=== PATIENT | male | born 1975 | race Caucasian/White ===

== ENCOUNTER 2016-05-14 21:15 | Inpatient (IN) | payer OTHER ==
--- NOTE | ~2016-05-14 | PN ---
Unit #: [id number] #: [id number] Patient: ALEX MARISCAL V [id number] [facility] [address] [place] [address] [id number] MR#: [id number] NAME: ALEX MARISCAL V. ROOM: P205 Age: 40 Sex: M Admission Date: 05/14/2016 : 1975 Attending Physician: Raul Foy M.D. Admitting Physician: Raul Foy M.D. Primary Care Physician: [facility] EMERALD LAKHANI NOTES DATE OF SERVICE: 05/16/2016 DISCUSSION Alex Mariscal is a 40-year-old male, seen on 05/16/2016. The patient interviewed, chart reviewed, and obtained information from nursing staff. The patient was compliant and cooperative. Mood was sad, dysphoric, flat affect, guarded. The patient was able to maintain safe behavior. REVIEW OF SYSTEMS Complete review of systems unremarkable. MENTAL STATUS EXAMINATION General appearance, the patient dressed casually. Attention span and concentration, fair. Oriented in place and person. Mood and affect, labile. Speech, regular rate. Thought process, goal directed. The patient denied any thoughts of harming self or others or any psychotic symptom. Recent and remote memory, poor. Insight and judgment, fair to poor. DIAGNOSIS Mood disorder, not otherwise specified. ASSESSMENT AND PLAN Advised to continue with current medication and therapeutic protocol. We will monitor response to medication and make further adjustment of medication. Dictated by... Madi Solorio/maisha TD: 05/18/2016 06:15 JOB #: [id number] Unit #: [id number] #: [id number] Patient: ALEX MARISCAL PROGRESS NOTES X Raul Foy MD PROGRESS NOTE
--- NOTE | ~2016-05-14 | PA ---
Unit #: [id number] #: [id number] Patient: ALEX MARISCAL V [id number] [facility] [address] [place] [address] [id number] I MR#: [id number] NAME: ALEX MARISCAL V. ROOM: [facility] Age: 40 Sex: M Admission Date: 05/14/2016 : 1975 Date of Assessment: Attending Physician: Raul Foy M.D. Admitting Physician: Raul Foy M.D. Primary Care Physician: [facility] PSYCHIATRIC ASSESSMENT INFORMANTS The patient reliability, fair; chart reliability, good. CHIEF COMPLAINT Homicidal ideation and bipolar disorder. HISTORY OF PRESENT ILLNESS Alex Mariscal is a 40-year-old male, seen on . The patient was admitted with the above-mentioned complaint. The patient has a history of previous admission at [facility], treatment, inpatient At [facility], requested by Certified Fraud Examiner. The patient was at [facility] penitentiary in 2010. The patient is currently unemployed, presented with the above-mentioned complaint, currently homeless. The patient was brought to the hospital. The patient believes that 3 men are trying to kill him because his [id number] put a hit on him. The patient was delusional, paranoid, mood lability, sad, and depressed. The patient has been in and out of penitentiary since age 10 for various charges. The patient was tested in penitentiary and he was diagnosed with paranoia, depression, anxiety, and was treated. The patient has a history of aggression and wanted to kill 3 of his siblings. Duty to warn was done. The patient was compliant and cooperative during interview. Needing inpatient admission at this time for psychiatric stabilization. PAST PSYCHIATRIC HISTORY Remarkable for history of previous treatment in penitentiary. FAMILY HISTORY/SOCIAL HISTORY The patient has a poor support system. History of alcohol problem in dad and history of addictions in mother according to the intake reports. No history of any abuse. MEDICAL HISTORY Remarkable for history of hypertension and asthma. Musculoskeletal; muscle strength and tone, no atrophy or abnormal movement. Gait normal. MEDICATION HISTORY None. ALLERGIES No known drug allergies. SUBSTANCE ABUSE HISTORY The patient reported tobacco, age of onset 12; alcohol, age of onset 15; Unit #: [id number] #: [id number] Patient: ALEX MARISCAL V marijuana, age of onset is 19; opioid, age of onset 13; and amphetamine, age of onset 38. The patient currently denied any withdrawal symptoms. REVIEW OF SYSTEMS HEENT: Eyes, clear. Ears, nose, mouth, throat; clear. CARDIOVASCULAR: Unremarkable. RESPIRATORY: Unremarkable. GI: Unremarkable. : Unremarkable. SKIN: Unremarkable. LYMPH NODE: Unremarkable. NEUROLOGIC: Unremarkable. ENDOCRINE: Unremarkable. HEMATOLOGIC: Unremarkable. ALLERGIC/IMMUNOLOGIC: Unremarkable. MUSCULOSKELETAL: Muscle strength and tone, no atrophy or abnormal movement. Gait normal. MENTAL STATUS EXAMINATION CONSTITUTIONAL: Measurement of vital signs; temperature 97.6, pulse 65, respirations 18, and blood pressure 141/73. Height 5 feet 11 inches and weight 169 pounds. GENERAL APPEARANCE: The patient dressed casually. The patient did not show any facial deformity. MUSCULOSKELETAL: Please see above. PSYCHIATRIC EXAMINATION Description of speech; regular rate, normal volume, normal articulation. Description of thought process, circumstantial. Description of association; guarded, paranoid, mood lability, problem with anger, temper, substance abuse. Description of the patient's judgment: Concerning everyday activity, poor. Social situation, poor. Concerning psychiatric condition, poor. History of homicidal ideation, denied any suicidal ideation, mood lability. Complete mental status examination; oriented in time, place, and person. Recent and remote memory, poor. Attention span and concentration, poor. Language; able to name object, repeat phrases. Fund of knowledge; aware of current event, passive vocabulary intact. Mood and affect, sad and dysphoric. Insight and judgment were fair to poor. ASSETS AND LIABILITIES Assets; the patient is articulate, able to take care of his ADL. Liabilities; history of substance abuse, depression. ADMITTING DIAGNOSES Psychiatric: 1. Mood disorder, not otherwise specified, F32.9. 2. Alcohol use disorder, severe, F10.20. 3. Cannabis abuse, moderate, F12.20. Secondary diagnosis: Deferred. Medical diagnoses: Hypertension, asthma. Stressors: Psychosocial stressors. PSYCHIATRIC PLAN, TREATMENT GOAL, AND DISCHARGE PLAN 1. Advised to admit the patient on the inpatient unit. Provide safe, Unit #: [id number] #: [id number] Patient: ALEX MARISCAL V supportive, and structured environment. 2. Ordered labs; CBC, CMP, UA, and UDS. 3. Advised to start the patient on Remeron, Neurontin, Vistaril, and Desyrel combination. If needed, consider further adjustment of medication. The patient is to be monitored for aggression and self-harm. 4. Treatment goal is to attain euthymic mood, gain insight into his problem, and learn coping skills. 5. Discharge plan: Plan is to stabilize the patient and consider followup in outpatient program. ESTIMATED LENGTH OF STAY 5 to 7 days. Dictated by... Madi Solorio/maisha TD: 05/17/2016 16:09 JOB #: [id number] PSYCHIATRIC ASSESSMENT X Raul Foy MD PSYCHIATRIC ASSESSMENT
--- NOTE | ~2016-05-14 | PN ---
Unit #: [id number] #: [id number] Patient: ALEX MARISCAL V [id number] [facility] [address] [place] [address] [id number] I MR#: [id number] NAME: ALEX MARISCAL V. ROOM: P205 Age: 40 Sex: M Admission Date: 05/14/2016 : 1975 Attending Physician: Raul Foy M.D. Admitting Physician: Raul Foy M.D. Primary Care Physician: [facility] EMERALD PROGRESS NOTES DATE 05/15/2016 DISCUSSION Alex Mariscal is a 40-year-old male seen on 05/15/2016. The patient interviewed, chart reviewed. Obtained information from nursing staff. The patient was compliant and cooperative, redirectable. Mood sad, dysphoric, flat affect, guarded. The patient urine drug screen came back positive for amphetamine. His CT scan of head is normal. Thyroid function test normal. CBC unremarkable. CMP remarkable for BUN 8, AST 200, ALT 210, Alkaline phosphatase 147. Complete review of systems unremarkable. MENTAL STATUS EXAMINATION General appearance, the patient dressed casually. Attention span and concentration fair. Oriented to place and person. Mood and affect labile. Speech regular rate. Thought process goal directed. The patient denied any thoughts of harming self or others or any psychotic symptoms. Recent and remote memory poor. Insight and judgement poor. DIAGNOSES Mood disorder NOS, polysubstance abuse. ASSESSMENT/PLAN Advise to continue with current medication and therapeutic protocol. We will monitor response to medication and make further adjustment of medication. Dictated by... Madi Solorio/bonnie TD: 05/18/2016 22:02 JOB #: [id number] Unit #: [id number] #: [id number] Patient: ALEX MARISCAL PROGRESS NOTES X Raul Foy MD PROGRESS NOTE
--- NOTE | ~2016-05-14 | DS ---
Unit #: [id number] #: [id number] Patient: ALEX MARISCAL V [id number] [facility] [address] [place] [address] [id number] I MR#: [id number] NAME: ALEX MARISCAL V. ROOM: [facility] Age: 40 Sex: M Admission Date: 05/14/2016 : 1975 Discharge Date: 05/17/2016 Attending Physician: Raul Foy M.D. Primary Care Physician: [facility] DISCHARGE SUMMARY REASON FOR ADMISSION Psychosis. DIAGNOSTIC STUDIES LABORATORY RESULTS: Remarkable for AST 200 and ALT 210. Urine drug screen was positive for amphetamine. HOSPITAL COURSE The patient was admitted to the inpatient unit on 05/14/2016 and discharged on 05/17/2016. The patient was treated on the inpatient unit with group therapy, individual therapy, medication management, and chemical dependency group. The patient responded well with the above modalities of treatment. Subsequently, the patient was discharged with a plan to follow up in outpatient program. DISCHARGE MEDICATIONS Desyrel 75 mg at bedtime for sleep, Remeron 15 mg at bedtime for depression, and Neurontin 300 mg t.i.d. for mood symptoms. DISCHARGE DIAGNOSES Psychiatric: 1. Mood disorder, not otherwise specified, F32.9. 2. Alcohol use disorder, severe, F10.20. 3. Cannabis abuse, moderate, F12.20. Secondary diagnosis: Deferred. Medical diagnoses: Asthma, hypertension. Stressors: Psychosocial stressors. DISCHARGE INSTRUCTIONS The patient is to follow up in outpatient clinic as per social services assistant. CONDITION ON DISCHARGE The patient was pleasant and cooperative. Denied any psychotic symptom or any suicidal ideation. PROGNOSIS Guarded. DIET AND ACTIVITY As tolerated. Unit #: [id number] #: [id number] Patient: ALEX MARISCAL V Dictated by... Madi Solorio/maisha TD: 05/18/2016 18:45 JOB #: [id number] DISCHARGE SUMMARY X Raul Foy MD X DISCHARGE SUMMARY
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
[~2016-05-14 21:15] MED LIST: ANTIBIOTIC; ERYTHROMYCIN B500 MG PO; HYDROCODONE-APA1 T30 PO; KETOPROFEN PO; LORTAB 5/500 TA1 TA1 PO; LORTAB 7.5-5001 TAB PO; NAPROXEN PO
[2016-05-15 11:42] LABS: THYROID STIMULATING HORMONE 1.03 uIU/ml (0.34-5.60)
[2016-05-15 11:48] LABS: FREE THYROXIN (T4) 0.97 ng/dL (0.58-1.64)
== END 2016-05-17 10:48 | disposition home or self-care (01) | DRG 885 ==
LOC: P2S 21:15
PROVIDERS: Psychiatry & Neurology Psychiatry
DX: F39 Unspecified mood [affective] disorder (principal); I10 Essential (primary) hypertension; F32.9 Major depressive disorder, single episode, unspecified; F10.20 Alcohol dependence, uncomplicated; F12.20 Cannabis dependence, uncomplicated; J45.909 Unspecified asthma, uncomplicated; Z88.0 Allergy status to penicillin; F17.200 Nicotine dependence, unspecified, uncomplicated; Z59.0 Homelessness; F41.9 Anxiety disorder, unspecified
CPT/HCPCS: 84439; 84443

== ENCOUNTER 2016-06-01 03:16 | Emergency (ER) | payer OTHER | END 2016-06-01 04:59 | LOC: CED 03:16 | DX: R44.0 Auditory hallucinations (principal); R45.851 Suicidal ideations; F31.9 Bipolar disorder, unspecified; J44.9 Chronic obstructive pulmonary disease, unspecified; F17.210 Nicotine dependence, cigarettes, uncomplicated | CPT/HCPCS: 99285 ==

== ENCOUNTER 2016-06-01 05:44 | Inpatient (IN) | payer OTHER ==
--- NOTE | ~2016-06-01 | DS ---
Unit #: [id number] #: [id number] Patient: FCO MARISCAL V [id number] [facility] [address] [place] [address] [id number] I MR#: [id number] NAME: FCO MARISCAL V. ROOM: 73 Age: 40 Sex: M Admission Date: 06/01/2016 : 1975 Discharge Date: 06/02/2016 Attending Physician: Raul Foy M.D. Primary Care Physician: [facility] DISCHARGE SUMMARY REASON FOR ADMISSION Depression. HISTORY OF PRESENT ILLNESS Mr. Fco Mariscal is a 40-year-old male, admitted on 06/01/2016 and discharged on 06/02/2016. The patient was treated on the inpatient unit with group therapy, individual therapy, medication management. The patient responded fairly well. Subsequently, the patient was discharged as the patient was able to contract for safety with a plan to follow up in outpatient program. DISCHARGE MEDICATIONS The patient was on Neurontin 300 mg t.i.d. for anxiety, Robaxin 15 mg t.i.d. for pain, Remeron 15 mg at bedtime for sleep and depression, Voltaren 75 mg b.i.d. for pain. DISCHARGE DIAGNOSES Psychiatric: Mood disorder, not otherwise specified, F32.9; alcohol use disorder, severe; cannabis use disorder, moderate. Secondary diagnosis: Deferred. Medical diagnoses: Hypertension and asthma. Stressors: Psychosocial stressor. DISCHARGE INSTRUCTIONS The patient to follow up in outpatient clinic as per social welfare administrator. CONDITION ON DISCHARGE The patient was pleasant and cooperative. Denied any psychotic symptom or any suicidal ideation. PROGNOSIS Guarded. DIET AND ACTIVITY As tolerated. Dictated by... Raul Foy M.D. Unit #: [id number] #: [id number] Patient: FCO MARISCAL V SZC/modl TD: 06/03/2016 06:11 JOB #: [id number] DISCHARGE SUMMARY X Raul Foy MD X DISCHARGE SUMMARY
--- NOTE | ~2016-06-01 | HP ---
Unit #: [id number] #: [id number] Patient: ALEX MARISCAL V [id number] [facility] [address] [place] [address] [id number] I MR#: [id number] NAME: ALEX MARISCAL V. ROOM: [facility] Age: 40 Sex: M Admission Date: 06/01/2016 : 1975 Attending Physician: Raul Foy M.D. Admitting Physician: Raul Foy M.D. Primary Care Physician: [facility] HISTORY AND PHYSICAL NOTE Alex is a 40 year old admitted to [facility] reporting depression and verbalizing wanting to hurt himself. The patient was seen and H and P dated 05/15/2016 was reviewed. This is current. No changes. Please see H and P dated 05/15/2016. Dictated by... Sade Mann P.A.-C. for Madi Glover/bonnie TD: 06/02/2016 02:15 JOB #: [id number] HISTORY AND PHYSICAL X Sade Mann HISTORY AND PHYSICAL
--- NOTE | ~2016-06-01 | PA ---
Unit #: [id number] #: [id number] Patient: [facility] V [id number] [facility] [address] [place] [address] [id number] I MR#: [id number] NAME: ALEX MARISCAL V. ROOM: [facility] Age: 40 Sex: M Admission Date: 06/01/2016 : 1975 Date of Assessment: Attending Physician: Raul Foy M.D. Admitting Physician: Raul Foy M.D. Primary Care Physician: [facility] PSYCHIATRIC ASSESSMENT INFORMANTS The patient's reliability, fair; chart reliability, good. CHIEF COMPLAINT Suicidal ideation and homicidal ideation. HISTORY OF PRESENT ILLNESS Mr. Alex Mariscal is a 40-year-old white male, seen on 06/01/2016. The patient presented with the above-mentioned complaint. The patient has a history of previous admission from 05/14/2016 and 05/17/2016 with diagnosis of mood disorder, alcohol use disorder, cannabis abuse. The patient was admitted from [facility] due to the patient stating that he is hearing voices to harm himself with a plan. The patient reported that he does not know why he is being admitted, but the patient reported that he has not been taking his medication as prescribed. The patient also reported that he may be on 72-hour hold and being admitted due to saying that he wanted to kill people. The patient had suicidal and homicidal ideation. The patient reported homeless and wanted to get in due to it being cold outside, but admitted to the web content writer having suicidal and homicidal ideation, nonspecific. The patient reported hearing voices, wanting to kill people reported. Denied any use of drugs or alcohol. The patient has a history of previous treatment. Needing inpatient admission at this time for psychiatric stabilization. PAST PSYCHIATRIC HISTORY Remarkable [facility]. FAMILY HISTORY/SOCIAL HISTORY The patient reports currently homeless, but reports that history of previous treatment in prison. History of addiction in both mother and father's side of the family. No history of abuse. MEDICAL HISTORY Remarkable for hypertension and asthma. Musculoskeletal; muscle strength and tone, no atrophy or abnormal movement. Gait normal. MEDICATION HISTORY The patient is on Remeron 15 mg at bedtime, diclofenac 75 mg b.i.d., methocarbamol 1500 mg t.i.d., Neurontin 300 mg t.i.d. ALLERGIES No known drug allergies. Unit #: [id number] #: [id number] Patient: ALEX MARISCAL V SUBSTANCE ABUSE HISTORY The patient reported tobacco use, age of onset 12; alcohol, age of onset 15; marijuana, age of onset 19, opioid use, age of onset 13; and amphetamine, age of onset 38. The patient currently denied any use of drugs or any withdrawal. REVIEW OF SYSTEMS HEENT: Eyes, clear. Ears, nose, mouth, and throat; clear. CARDIOVASCULAR: Unremarkable. RESPIRATORY: Unremarkable. GI: Unremarkable. : Unremarkable. SKIN: Unremarkable. LYMPH NODE: Unremarkable. NEUROLOGIC: Unremarkable. ENDOCRINE: Unremarkable. HEMATOLOGIC: Unremarkable. ALLERGIC/IMMUNOLOGIC: Unremarkable. MUSCULOSKELETAL: Muscle strength and tone, no atrophy or abnormal movement. Gait normal. MENTAL STATUS EXAMINATION CONSTITUTIONAL: Measurement of vital signs; temperature 98.2, pulse 70, respirations 16, blood pressure 141/89. Height is 5 feet 11 inches, weight is 175 pounds. GENERAL APPEARANCE: The patient dressed casually. The patient did not show any facial deformity. MUSCULOSKELETAL: Muscle strength and tone, no atrophy or abnormal movement. Gait normal. PSYCHIATRIC EXAMINATION Description of speech; regular rate, normal volume, normal articulation. Description of thought process, goal directed. Description of association; intact, but guarded, paranoid. The patient reported having thoughts of harming self or others, mood lability, but no aggressive behavior. Denied any use of drugs. Description of the patient's judgment; concerning everyday activity, poor. Social situation, poor. Concerning psychiatric condition, poor. Complete mental status examination; oriented in time, place, and person. Recent and remote memory, fair. Attention span and concentration, fair. Language, able to name object and repeat phrases. Fund of knowledge, fair. Insight and judgment, fair to poor. ASSETS AND LIABILITIES Assets; the patient articulate, able to take care of his ADL. Liability; history of substance abuse, history of depression, but no recent substance abuse. ADMITTING DIAGNOSES Psychiatric: 1. Mood disorder, not otherwise specified, F32.9. 2. Alcohol use disorder, severe. 3. Cannabis abuse disorder, moderate. Secondary diagnosis: Deferred. Medical diagnoses: Hypertension and asthma. Unit #: [id number] #: [id number] Patient: ALEX MARISCAL V Stressors: Psychosocial stressors. PSYCHIATRIC PLAN AND TREATMENT GOAL 1. Advised to admit the patient on the inpatient unit. Provide safe, supportive, and structured environment. 2. Ordered labs; CBC, CMP, UA, and UDS. 3. SP1 precaution, precaution for aggression. The patient to be monitored closely. Advised to resume current medication. If needed, consider further adjustment of medication. Treatment goal to attain euthymic mood, gain insight into his problem, and learn coping skills. DISCHARGE PLAN Plan to stabilize the patient and consider followup in outpatient program such as [facility] level of care once the patient is stable. ESTIMATED LENGTH OF STAY 3 to 5 days. Dictated by... Madi Solorio/maisha TD: 06/02/2016 07:26 JOB #: [id number] PSYCHIATRIC ASSESSMENT X Raul Foy MD X PSYCHIATRIC ASSESSMENT
== END 2016-06-02 10:50 | disposition home or self-care (01) | DRG 881 ==
LOC: P1E 05:44 → POF 12:38 → P1E 12:42
DX: F32.9 Major depressive disorder, single episode, unspecified (principal); R45.851 Suicidal ideations; R45.850 Homicidal ideations; F39 Unspecified mood [affective] disorder; F10.20 Alcohol dependence, uncomplicated; F12.10 Cannabis abuse, uncomplicated; I10 Essential (primary) hypertension; J45.909 Unspecified asthma, uncomplicated; F17.210 Nicotine dependence, cigarettes, uncomplicated; Z59.0 Homelessness

== ENCOUNTER 2016-09-02 17:14 | Emergency (ER) | payer OTHER | END 2016-09-02 18:23 | disposition home or self-care (01) | LOC: CFTX 17:14 → CED 17:14 → CFTX 18:23 | DX: S80.11XA Contusion of right lower leg, initial encounter (principal); L25.9 Unspecified contact dermatitis, unspecified cause; F17.210 Nicotine dependence, cigarettes, uncomplicated; X58.XXXA Exposure to other specified factors, initial encounter; Y92.9 Unspecified place or not applicable | CPT/HCPCS: 99283 ==